=== PATIENT | female | born 1975 | race Caucasian/White ===

== ENCOUNTER → 2018-05-22 | Outpatient (CLI) | payer OTHER ==
[2016-05-29 11:12] VITALS: BMI 18.8
[~2018-05-22] MED LIST: ACET500T68 PO; CETI10CA8 PO; CHOL200023 PO; DIVA250T83 PO; ESCI20TA38 PO; FERR28TA2 PO; FLU20 PO; FLUC100T35 PO; FOSI20TA57 PO; HUMALOG INSULIN PUMP; IBUP-136 PO; LEVE-14 PO; LEVE100047 PO; LEVE500T88 PO; LISI-349 PO; MULT-1335 PO; NOVOLOG SUBQ; OMEP-125 PO; OMEP-137 PO; ONDA4TAB PO; ONDA8TAB98 PO; POTA20TA12 PO; PROM-110 PO; PROM25SU9 RC; SERT-1 PO; SERT-173 PO; SERT25TA87 PO; SIMV-42 PO; SIMV-49 PO; antidepressant
== END ==
LOC: LAB 08:00
PROVIDERS: ATTEND Family Medicine
DX: R53.83 Other fatigue (principal)
CPT/HCPCS: 36415; 82533

== ENCOUNTER → 2018-09-12 | Outpatient (CLI) | payer OTHER ==
[2016-05-29 11:12] VITALS: BMI 18.8
[~2018-09-12] MED LIST changes: +FOSI20TA PO; -FOSI20TA57 PO
--- NOTE | 2018-09-12 16:28 | RADIOLOGY IMAGING REPORT ---
FACILITY: [facility] PATIENT NAME: Radha Bansal : 1975 MR: [id number] V: [id number] EXAM DATE: ORDERING PHYSICIAN: NIKKO SILVA TECHNOLOGIST: Location: [facility] Patient: Radha Bansal : 1975 Visit/Account:[id number] Date of Sevice: 09/12/2018 EXAMINATION: Transvaginal pelvic ultrasound with duplex Doppler evaluation 09/12/2018 2:40 PM HISTORY: Irregular menses.; LMP: 09/12/2018 COMPARISON STUDIES: none. FINDINGS: Initially, limited transabdominal imaging was done. Uterus: 7.4 x 4.2 x 4.3 cm Myometrium: negative Endometrium: 2 mm thickness. No focal finding. Cervix: Small nabothian cyst. Ovaries: right ovary 2.3 x 1.8 x 1.0 cm, left ovary 2.2 x 2.0 x 1.4 cm, 1.1 cm evolving corpus luteum in the left ovary. Other small follicles on each side. Blood flow is documented in each ovary by Doppler ultrasound. Adnexa: negative Free pelvic fluid: none IMPRESSION: Unremarkable pelvic ultrasound. Report Dictated By: Félix Gonzalez MD at 09/12/2018 4:23 PM Report E-Signed By: Félix Gonzalez MD at 09/12/2018 4:25 PM WSN:[email or web address]
== END ==
LOC: US 02:23
PROVIDERS: ATTEND Family Medicine
DX: N94.89 Other specified conditions associated with female genital organs and menstrual cycle (principal); R92.2 Inconclusive mammogram
CPT/HCPCS: 76856

== ENCOUNTER 2018-09-17 10:01 | Emergency (ER) | payer OTHER ==
[2016-05-29 11:12] VITALS: Wt 54.7 kg
--- NOTE | 2018-09-17 10:15 | ER Report ---
History and Physical Time Seen By MD: 10:15 Hx. of Stated Complaint: NAUSEA AND VOMITING, ON AMOXICILLIN FOR DENTAL INFECTION, HIGH GLUCOSE HPI/ROS CHIEF COMPLAINT: Dehydration, nausea, vomiting HISTORY OF PRESENT ILLNESS: Patient is a 43-year-old female here with complaints of nausea, vomiting, diffuse abdominal pain, recent history of dental infection started on amoxicillin yesterday. Patient reports that her symptoms started yesterday afternoon and seemed of worsened. She attempted to take Phenergan at home but was unable to keep this medication down. Patient has a history of type I diabetes on an insulin pump and reports having hyperglycemia. Patient is afebrile time of evaluation, tachycardic completed root though. Hematologic vomiting. REVIEW OF SYSTEMS: Constitutional: No fever, no chills. Eyes: No discharge. ENT: No sore throat. + dental pain Cardiovascular: No chest pain, no palpitations. Respiratory: No cough, no shortness of breath. Gastrointestinal: No abdominal pain, no vomiting. Genitourinary: No hematuria. Musculoskeletal: No back pain. Skin: No rashes. Neurological: No headache. Allergies: Coded Allergies: No Known Allergies (Verified Allergy, Mild, 02/18/17) gluten (Verified Allergy, Unknown, 02/18/17) Uncoded Allergies: HAYFEVER (Allergy, Intermediate, SINUS CONGESTION, 09/10/16) Home Meds Reported Medications Fluoxetine Hcl (PROZAC) 20 Mg Capsule, 20 MG PO QDAY, CAPSULE 09/17/18 Acetaminophen (TYLENOL EXTRA STRENGTH) 500 Mg Tablet, 1-2 TAB PO Q4H PRN for PAIN/HEADACHE, TAB 09/10/16 Ibuprofen (IBUPROFEN) 200 Mg Capsule, 3 CAP PO Q6H PRN for PAIN/HEADACHE, CAPSULE 09/10/16 Multivitamin With Minerals (MULTIPLE VITAMIN) 1 Each Tablet, 1 EACH PO DAILY, TAB 09/10/16 Cetirizine Hcl (ZYRTEC) 10 Mg Capsule, 10 MG PO QDAY PRN for CONGESTION, CAPSULE 09/10/16 Insulin Aspart (NOVOLOG) 100 Unit/Ml Soln, 100 UNIT SUBQ PER PUMP 09/10/16 Levetiracetam (KEPPRA) 500 Mg Tablet, 500 MG PO BID, TAB 05/29/16 Discontinued Reported Medications Omeprazole (OMEPRAZOLE) 20 Mg Capsule.dr, 1 CAP PO QDAY PRN for INDIGESTION, CAP 09/10/16 Sertraline Hcl (ZOLOFT) 50 Mg Tablet, 1 TAB PO BID, TAB 05/29/16 Hx Smoking: No Smoking Status: Never Smoker Exposure to Second Hand Smoke?: No Hx Substance Use Disorder: No Hx Alcohol Use: Yes Constitutional Vital Sign - Last 24 Hours 09/17/18 09/17/18 09/17/18 09/17/18 10:01 10:04 10:04 10:16 Temp 98.2 Pulse ??? 95 104 Resp 16 B/P (MAP) 161/94 161/94 (116) Pulse Ox 98 99 O2 Delivery Room Air 09/17/18 09/17/18 09/17/18 09/17/18 10:31 10:46 10:47 11:00 Pulse ??? 89 B/P (MAP) 135/104 (114) 144/81 (102) Pulse Ox 99 09/17/18 09/17/18 09/17/18 09/17/18 11:01 11:16 11:30 11:31 Pulse 92 95 88 Resp 19 18 11 B/P (MAP) 154/91 (112) Pulse Ox 98 98 98 09/17/18 09/17/18 09/17/18 09/17/18 11:46 11:51 12:00 12:06 Pulse 97 88 88 Resp 13 26 21 B/P (MAP) 152/88 (109) Pulse Ox 97 97 95 09/17/18 09/17/18 09/17/18 12:21 12:30 12:36 Pulse 96 100 Resp 24 17 B/P (MAP) 137/78 (97) Pulse Ox 97 97 Physical Exam General Appearance: The patient is alert, has no immediate need for airway protection and no signs of toxicity. Uncomfortable appearing Eyes: Pupils equal and round no pallor or injection. ENT, Mouth: Mucous membranes are moist. Respiratory: There are no retractions, lungs are clear to auscultation. Cardiovascular: Regular rate and rhythm. [ ] Gastrointestinal: + crampy diffuse abd pains Neurological: No focal neuro deficits Skin: Warm and dry, no rashes. Musculoskeletal: Neck is supple non tender. Extremities are nontender, nonswollen and have full range of motion. DIFFERENTIAL DIAGNOSIS: After history and physical exam differential diagnosis was considered for viral syndrome, gastroenteritis, dehydration, hyperglycemia, DKA, medication side effect, adverse medical reaction. Medical Decision Making Data Points Result Diagram: 09/17/18 1020 09/17/18 1020 Laboratory Hematology Test 09/17/18 10:20 09/17/18 10:30 09/17/18 10:41 Red Blood Count 4.64 M/uL (4.17-5.56) Mean Corpuscular Volume 94.3 fL (80.0-96.0) Mean Corpuscular Hemoglobin 32.0 pg (26.0-33.0) Mean Corpuscular Hemoglobin Concent 34.0 g/dL (32.0-36.0) Red Cell Distribution Width 12.1 % (11.5-14.5) Mean Platelet Volume 7.2 fL (7.2-11.1) Neutrophils (%) (Auto) 88.3 % (39.4-72.5) Lymphocytes (%) (Auto) 6.3 % (17.6-49.6) Monocytes (%) (Auto) 5.0 % (4.1-12.4) Eosinophils (%) (Auto) 0.1 % (0.4-6.7) Basophils (%) (Auto) 0.3 % (0.3-1.4) Nucleated RBC Relative Count (auto) 0.0 /100WBC Neutrophils # (Auto) 9.7 K/uL (2.0-7.4) Lymphocytes # (Auto) 0.7 K/uL (1.3-3.6) Monocytes # (Auto) 0.5 K/uL (0.3-1.0) Eosinophils # (Auto) 0.0 K/uL (0.0-0.5) Basophils # (Auto) 0.0 K/uL (0.0-0.1) Nucleated RBC Absolute Count (auto) 0.00 K/uL Sodium Level 139 mmol/L (137-145) Potassium Level 3.4 mmol/L (3.5-5.0) Chloride Level 105 mmol/L (98-107) Carbon Dioxide Level 21 mmol/L (22-31) Blood Urea Nitrogen 10 mg/dl (7-18) Creatinine 0.50 mg/dl (0.52-1.04) Glomerular Filtration Rate Calc > 60.0 Random Glucose 252 mg/dl (75-110) Osmolality 294 mOSM/K (275-295) Calcium Level 9.1 mg/dl (8.4-10.2) Total Bilirubin 0.8 mg/dl (0.2-1.3) Aspartate Amino Transf (AST/SGOT) 28 U/L (0-35) Alanine Aminotransferase (ALT/SGPT) 32 U/L (0-56) Alkaline Phosphatase 89 U/L (0-126) Total Protein 7.1 g/dl (6.3-8.2) Albumin 4.2 g/dl (3.5-5.0) Lipase < 10 U/L (23-300) Human Chorionic Gonadotropin, Qual Negative (NEGATIVE) Acetone, Qualitative Negative Urine Color Yellow Urine Clarity Slightly-cloudy Urine pH 6.0 pH (4.8-9.5) Urine Specific [place] 1.025 Urine Protein 30 mg/dL (NEGATIVE) Urine Glucose (UA) 500 mg/dL (NEGATIVE) Urine Ketones 80 mg/dL (NEGATIVE) Urine Blood Negative (NEGATIVE) Urine Nitrite Negative (NEGATIVE) Urine Bilirubin Negative (NEGATIVE) Urine Urobilinogen Negative mg/dL (0.2-1.9) Urine Leukocyte Esterase Negative (NEGATIVE) Urine RBC 2 /HPF (0-2/HPF) Urine WBC None /HPF (0-5/HPF) Urine Squamous Epithelial Cells Many /LPF (</=FEW) Urine Bacteria Negative /HPF (NONE-FEW) Urine Mucus Few /HPF (NONE-FEW) Blood Gas Patient Temperature Unknown DEGREES Venous Blood pH 7.41 (7.31-7.41) Venous Blood Partial Pressure CO2 30 mmHg Venous Blood Partial Pressure O2 35 mmHg Venous Blood HCO3 19 mmol/L Venous Blood Oxygen Saturation 69 % Venous Blood Base Excess -6 mmol/L Oxygen Liters/Minute Unknown Chemistry Test 09/17/18 10:20 09/17/18 10:30 09/17/18 10:41 White Blood Count 11.0 k/uL (4.5-11.0) Red Blood Count 4.64 M/uL (4.17-5.56) Hemoglobin 14.9 g/dL (12.0-16.0) Hematocrit 43.8 % (34.0-47.0) Mean Corpuscular Volume 94.3 fL (80.0-96.0) Mean Corpuscular Hemoglobin 32.0 pg (26.0-33.0) Mean Corpuscular Hemoglobin Concent 34.0 g/dL (32.0-36.0) Red Cell Distribution Width 12.1 % (11.5-14.5) Platelet Count 293 K/uL (150-450) Mean Platelet Volume 7.2 fL (7.2-11.1) Neutrophils (%) (Auto) 88.3 % (39.4-72.5) Lymphocytes (%) (Auto) 6.3 % (17.6-49.6) Monocytes (%) (Auto) 5.0 % (4.1-12.4) Eosinophils (%) (Auto) 0.1 % (0.4-6.7) Basophils (%) (Auto) 0.3 % (0.3-1.4) Nucleated RBC Relative Count (auto) 0.0 /100WBC Neutrophils # (Auto) 9.7 K/uL (2.0-7.4) Lymphocytes # (Auto) 0.7 K/uL (1.3-3.6) Monocytes # (Auto) 0.5 K/uL (0.3-1.0) Eosinophils # (Auto) 0.0 K/uL (0.0-0.5) Basophils # (Auto) 0.0 K/uL (0.0-0.1) Nucleated RBC Absolute Count (auto) 0.00 K/uL Glomerular Filtration Rate Calc > 60.0 Osmolality 294 mOSM/K (275-295) Calcium Level 9.1 mg/dl (8.4-10.2) Total Bilirubin 0.8 mg/dl (0.2-1.3) Aspartate Amino Transf (AST/SGOT) 28 U/L (0-35) Alanine Aminotransferase (ALT/SGPT) 32 U/L (0-56) Alkaline Phosphatase 89 U/L (0-126) Total Protein 7.1 g/dl (6.3-8.2) Albumin 4.2 g/dl (3.5-5.0) Lipase < 10 U/L (23-300) Human Chorionic Gonadotropin, Qual Negative (NEGATIVE) Acetone, Qualitative Negative Urine Color Yellow Urine Clarity Slightly-cloudy Urine pH 6.0 pH (4.8-9.5) Urine Specific [place] 1.025 Urine Protein 30 mg/dL (NEGATIVE) Urine Glucose (UA) 500 mg/dL (NEGATIVE) Urine Ketones 80 mg/dL (NEGATIVE) Urine Blood Negative (NEGATIVE) Urine Nitrite Negative (NEGATIVE) Urine Bilirubin Negative (NEGATIVE) Urine Urobilinogen Negative mg/dL (0.2-1.9) Urine Leukocyte Esterase Negative (NEGATIVE) Urine RBC 2 /HPF (0-2/HPF) Urine WBC None /HPF (0-5/HPF) Urine Squamous Epithelial Cells Many /LPF (</=FEW) Urine Bacteria Negative /HPF (NONE-FEW) Urine Mucus Few /HPF (NONE-FEW) Blood Gas Patient Temperature Unknown DEGREES Venous Blood pH 7.41 (7.31-7.41) Venous Blood Partial Pressure CO2 30 mmHg Venous Blood Partial Pressure O2 35 mmHg Venous Blood HCO3 19 mmol/L Venous Blood Oxygen Saturation 69 % Venous Blood Base Excess -6 mmol/L Oxygen Liters/Minute Unknown Toxicology Test 09/17/18 10:20 Acetone, Qualitative Negative Urinalysis Test 09/17/18 10:30 Urine Color Yellow Urine Clarity Slightly-cloudy Urine pH 6.0 pH (4.8-9.5) Urine Specific [place] 1.025 Urine Protein 30 mg/dL (NEGATIVE) Urine Glucose (UA) 500 mg/dL (NEGATIVE) Urine Ketones 80 mg/dL (NEGATIVE) Urine Blood Negative (NEGATIVE) Urine Nitrite Negative (NEGATIVE) Urine Bilirubin Negative (NEGATIVE) Urine Urobilinogen Negative mg/dL (0.2-1.9) Urine Leukocyte Esterase Negative (NEGATIVE) Urine RBC 2 /HPF (0-2/HPF) Urine WBC None /HPF (0-5/HPF) Urine Squamous Epithelial Cells Many /LPF (</=FEW) Urine Bacteria Negative /HPF (NONE-FEW) Urine Mucus Few /HPF (NONE-FEW) ED Course/Re-evaluation ED Course Patient is a 43-year-old female here with complaints of abdominal cramping pains, nausea, vomiting in the setting of diabetes type I with an insulin pump, recent initiation of amoxicillin therapy for dental infection. Labs are unremarkable, patient was found to be not acidotic with no leukocytosis or electrolyte appearance his. She was noted to be hyperglycemic with glucose level was 252. Patient was hydrated using 2 L of fluid and received antiemetics Zofran and Phenergan with significant relief of symptoms. Patient was able to tolerate oral intake prior to discharge. She was advised to return promptly if she developed worsening abdominal pain, fevers, inability to tolerate by mouth intake. Decision to Disposition Date: Sep 17, 2018 Decision to Disposition Time: 12:45 Depart Departure Latest Vital Signs Vital Signs Date Time Temp Pulse Resp B/P (MAP) Pulse Ox O2 Delivery O2 Flow Rate FiO2 09/17/18 12:36 100 17 97 09/17/18 12:30 137/78 (97) 09/17/18 10:04 98.2 Room Air Impression: Primary Impression: Nausea & vomiting Additional Impressions: Acute hyperglycemia Dehydration Condition: Improved Disposition: HOME OR SELF-CARE Referrals: NIKKO SILVA DO (PCP) Patient Instructions: Dehydration (ED), Diabetic Hyperglycemia (ED) Problem Qualifiers MARIBEL VELAZQUEZ DO Sep 17, 2018 10:15
[2018-09-17] MEDS ORDERED: NS(*) 0.9% 1000 ML BAG 1,000 ML IV ONE ×2 (10:22→11:45)
[2018-09-17] MEDS ORDERED: ONDANSETRON 4 MG/2 ML VIAL IVP ONE (10:25)
[2018-09-17 10:33] LABS: PLATELET COUNT, AUTOMATED 293 K/uL (150-450)
[2018-09-17] MEDS ORDERED: FLUO-202 PO (10:54)
[2018-09-17] MEDS ORDERED: PROMETHAZINE 25 MG/ML 1 ML AMP IVP ONE (11:45)
[2018-09-17 12:30] VITALS: BP 137/78
== END 2018-09-17 12:45 | disposition home or self-care (01) ==
LOC: ER 10:18
DX: E10.65 Type 1 diabetes mellitus with hyperglycemia (principal); Z79.4 Long term (current) use of insulin; R11.2 Nausea with vomiting, unspecified; E86.0 Dehydration
CPT/HCPCS: 81001; 82009; 82803; 83690; 83930; 84703; 85025; 96361; 96374; 96375; 99284; J2405; J2550; J7030; 36416; 82040; 82247; 82310; 82374; 82435; 82565; 82947; 82948; 84075; 84132; 84155; 84295; 84450; 84460; 84520

== ENCOUNTER → 2018-09-25 | Outpatient (CLI) | payer OTHER ==
[2016-05-29 11:12] VITALS: BMI 18.8
[~2018-09-25] MED LIST changes: +FLUO-202 PO
--- NOTE | 2018-09-25 15:23 | RADIOLOGY IMAGING REPORT ---
FACILITY: [facility] PATIENT NAME: YUMIKO LEVINE : [id number] MR: [id number] V: [id number] EXAM DATE: [id number] ORDERING PHYSICIAN: NIKKO SILVA TECHNOLOGIST: Blanca Beltran PROCEDURE:BILATERAL DIGITAL SCREENING MAMMOGRAM WITH CAD ASSISTED INTERPRETATION & 3D TOMOSYNTHESIS COMPARISON:None. Baseline study. INDICATIONS:SCREENING FINDINGS: Breast parenchyma is heterogeneously dense. There are no mammographic findings concerning for malignancy. Lymph nodes are present in both axillary tails. DIAGNOSTIC CATEGORY 1--NEGATIVE. RECOMMENDATIONS: ROUTINE MAMMOGRAM AND CLINICAL EVALUATION IN 1 YEAR. IMPRESSION: BIRADS 1: Negative. Dictated by: Félix Gonzalez on 09/25/2018 at 14:28 Transcribed by: YOSI on 09/25/2018 at 14:46 Approved by: Félix Gonzalez on 09/25/2018 at 15:22 [facility]
== END ==
LOC: MAMO 02:16
PROVIDERS: ATTEND Family Medicine
DX: Z12.31 Encounter for screening mammogram for malignant neoplasm of breast (principal)
CPT/HCPCS: 77063; 77067